=== PATIENT | female | born 1985 | race Caucasian/White ===

== ENCOUNTER 2017-12-23 15:41 | Emergency (ER) | payer BC ==
[2017-12-23] MEDS ORDERED: oxyCOD/ACETAMIN 5 MG/325 MG TABLET PO STA (16:42)
--- NOTE | 2017-12-23 16:46 | ED Physician Documentation ---
History of Present Illness - Stated complaint Stated Complaint: NAUSEA/PX ALL OVER - Chief complaint Chief Complaint: General - History obtained from History obtained from: Patient, Family - History of Present Illness Timing: Today Pain level max: 10 Pain level now: 10 Improved by: nothing, oxycodone normally helps Worsened by: movement - Additonal information Additional information: Patient is a 32-year-old female who presents to the emergency department with diffuse body pain. This been ongoing for the past day or so. Recently diagnosed with fibromyalgia. She states that she had been on oxycodone but has run out. She is awaiting an appointment with pain management. Has not had any fevers but has had coughing and body aches. Concerned that she may have the flu as well. Has had nausea. Also had mild diarrhea. Review of Systems Ten Systems: 10 systems reviewed and negative Constitutional: denies: Fever, Chills Ears: denies: Ear pain : denies: Now EGA Skin: denies: Rash Musculoskeletal: denies: Neck pain, Back pain Neurologic: denies: Generalized weakness, Focal weakness, Numbness PD PAST MEDICAL HISTORY - Past Medical History Past Medical History: Yes Musculoskeletal: Fibromyalgia - Past Surgical History Past Surgical History: Yes General: Cholecystectomy Ortho: Carpal Tunnel surgery - Present Medications Home Medications: Ambulatory Orders Medication Instructions Recorded Confirmed Oxycodone HCl/Acetaminophen 1 - 2 each PO Q6H PRN #12 tablet 12/23/17 [Percocet 5-325 mg Tablet] Trazodone HCl 150 12/23/17 Venlafaxine HCl [Effexor Xr] 225 12/23/17 - Allergies Allergies/Adverse Reactions: Allergies Allergy/AdvReac Type Severity Reaction Status Date / Time bupropion [From Wellbutrin] Allergy Unknown Verified 12/23/17 15:47 hyoscyamine Allergy Unknown Verified 12/23/17 15:47 - Social History Does the pt smoke?: No Smoking Status: Never smoker Substance Use and Type: Marijuana - Immunizations Immunizations are current?: Yes PD ED PE NORMAL - Vitals Vital signs reviewed: Yes - General General: Alert and oriented X 3, Other (appears uncomfortable) - HEENT HEENT: PERRL, Ears normal, Moist mucous membranes - Neck Neck: Supple, no meningeal sign - Cardiac Cardiac: RRR, Strong equal pulses - Respiratory Respiratory: No respiratory distress, Clear bilaterally - Abdomen Abdomen: Soft, Non tender, Non distended - Back Back: No CVA TTP, No spinal TTP - Derm Derm: Warm and dry, No rash - Extremities Extremities: No edema - Neuro Neuro: Alert and oriented X 3 Results - Vitals Vitals: Vital Signs - 24 hr 12/23/17 12/23/17 15:44 18:02 Temperature 36.8 C 37.0 C Heart Rate 92 77 Respiratory 18 16 Rate Blood Pressure 132/96 H 119/85 H O2 Saturation 99 99 Oxygen O2 Source Room air - Labs Labs: Laboratory Tests 12/23/17 16:50 Influenza A (Rapid) Negative Influenza B (Rapid) Negative Influenza Types A,B Ag - PD MEDICAL DECISION MAKING - ED course Complexity details: reviewed results, re-evaluated patient, considered differential, d/w patient, d/w family ED course: Patient is a 32-year-old female with a history of fibromyalgia who presents to the emergency department with diffuse body pain. Given 2 oxycodone 5 mg pills and symptoms resolved. Feels much better. Reviewed her JEAN-PIERRE/WAPMP and appears that she has been getting oxycodone fairly regularly, approximately 30 per month. Possible that she ran out and was experiencing withdrawal? Will have her follow-up with her doctor on Monday for further care. Will prescribe a small amount of medication for home. Patient informed that she will need to obtain further medications from her doctor. Patient counseled regarding signs and symptoms for which I believe and urgent re-evaluation would be necessary. Patient with good understanding of and agreement to plan and is comfortable going home at this time This document was made in part using voice recognition software. While efforts are made to proofread this document, sound alike and grammatical errors may occur. Departure - Departure Disposition: Home, Self Care Clinical Impression: Fibromyalgia Condition: Good Instructions: Fibromyalgia Follow-Up: Hallie Horton MD [Primary Care Provider] - Within 3 Days Prescriptions: Oxycodone HCl/Acetaminophen [Percocet 5-325 mg Tablet] 1 - 2 each PO Q6H PRN # 12 tablet PRN Reason: pain Comments: Use the percocet as needed for pain. All future pain medications will need to come from your doctor. Do not drink alcohol or drive while on narcotic pain medicine. Note that many narcotic pain relievers also contain tylenol/acetaminophen. Please ensure that your total dose of acetaminophen from all sources does not exceed 3 grams (3000mg) per day. You may constipated on this medication, take a stool softener such as "Colace" twice a day while you are on it. Also recommend a [id number] laxative such as senna or MiraLAX any day that you do not have a bowel movement. If you received narcotic pain medication in the emergency department, do not drive or operate machinery for the next 24 hours. Discharge Date/Time: 12/23/17 18:02
[2017-12-23 18:04] VITALS: BP 119/85
== END 2017-12-23 18:02 | disposition home or self-care (01) ==
LOC: ED 15:41
DX: M79.7 Fibromyalgia (principal)
CPT/HCPCS: 87275; 87276; 99283; A9270

== ENCOUNTER 2017-12-26 10:12 | Outpatient (CLI) | payer BC ==
[2017-12-26 10:47] LABS: BASOPHILS % (AUTO) 0.5 %; EOSINOPHILS # (AUTO) 0.1 10^3/uL (0.0-0.7); EOSINOPHILS % (AUTO) 0.8 %; HGB - HEMOGLOBIN 14.4 g/dL (12.0-16.0); LYMPHOCYTES % (AUTO) 14.9 %; MEAN CORPUSCULAR HEMOGLOBIN 29.5 pg (27.0-31.0); MEAN CORPUSCULAR HGB CONC 34.3 g/dL (32.0-36.0); MEAN CORPUSCULAR VOLUME 86.2 fL (81.0-99.0); MEAN PLATELET VOLUME 7.1 fL (7.9-10.8); MONOCYTES # (AUTO) 0.4 10^3/uL (0.0-1.0); MONOCYTES % (AUTO) 5.8 %; NEUTROPHILS # (AUTO) 5.1 10^3/uL (1.5-6.6); PLT - PLATELET COUNT 288 10^3/uL (130-450); RED BLOOD COUNT 4.86 10^6/uL (4.20-5.40); RED CELL DISTRIBUTION WIDTH 12.3 % (12.0-15.0); WHITE BLOOD COUNT 6.6 x10^3/uL (4.8-10.8)
[2017-12-26 11:07] LABS: CK- CREATINE KINASE 60 IU/L (22-269)
[2017-12-26 11:08] LABS: CRP - C-REACTIVE PROTEIN < 1.0 mg/dL (0-1.0)
[2017-12-26 11:28] LABS: BILIRUBIN,URINE NEGATIVE (NEGATIVE); GLUCOSE, URINE (UA) NEGATIVE (NEGATIVE); KETONES,URINE (UA) 15 mg/dL (NEGATIVE); LEUKOCYTE ESTERASE, URINE NEGATIVE (NEGATIVE); NITRITE,URINE NEGATIVE (NEGATIVE); OCCULT BLOOD,URINE NEGATIVE (NEGATIVE); PH,URINE 6.5 PH (5.0-7.5); PROTEIN,URINE NEGATIVE (NEGATIVE); UROBILINOGEN,URINE 0.2 (NORMAL) E.U./dL (NORMAL)
[2017-12-26 11:36] LABS: CLARITY,URINE CLEAR (CLEAR)
--- NOTE | 2017-12-26 16:44 | XRAY Report ---
TWO VIEW CHEST: 12/26/2017 CLINICAL INDICATION: Cough. COMPARISON: None. FINDINGS: Frontal and lateral views of the chest demonstrate a normal cardiac silhouette. The lungs are clear. No effusion or pneumothorax is present. IMPRESSION: NORMAL CHEST. TD: 12/26/2017 16:44
== END 2017-12-26 10:13 | disposition home or self-care (01) ==
LOC: LAB 10:12
PROVIDERS: ATTEND Internal Medicine
DX: R50.9 Fever, unspecified (principal); M79.1 Myalgia; R53.83 Other fatigue; R05 Cough
CPT/HCPCS: 36415; 71046; 81001; 81003; 82550; 84443; 85025; 85651; 86140; 86308; 87040; 87086

== ENCOUNTER 2017-12-26 11:08 | Emergency (ER) | payer BC ==
--- NOTE | 2017-12-26 12:26 | ED Physician Documentation ---
PD HPI URI - Stated complaint Stated Complaint: WEAKNESS/PX - Chief complaint Chief Complaint: General - History obtained from History obtained from: Patient - History of Present Illness Timing - onset: How many weeks ago (has had ongoing muscle pains with Dx ? fibromyalgia, and has had flu like symptoms with nausea, chills, worse aches the past week.) Timing details: Gradual onset, Still present, Waxing and waning Associated symptoms: Chills, Dry cough. No: Fever, Nasal congestion, Sore throat, Swollen nodes Contributing factors: No: Sick contact, Travel Similar symptoms before: Diagnosis (fibromyalgia) Recently seen: Emergency Dept (several days ago, with neg flu test and presumed some viral illness. Seen by new PCP today and got outpt labs and CXR which are resulting. She came to ED again for symptoms after getting chest xray. Feeling still marked myalgias, weakness, nausea.) Review of Systems Constitutional: reports: Chills, Myalgias, Fatigue Nose: reports: Congestion. denies: Rhinorrhea / runny nose Throat: denies: Sore throat Cardiac: denies: Chest pain / pressure, Palpitations Respiratory: reports: Cough GI: denies: Abdominal Pain, Nausea, Vomiting, Diarrhea Skin: denies: Rash, Lesions Neurologic: reports: Generalized weakness. denies: Focal weakness, Numbness, Near syncope PD PAST MEDICAL HISTORY - Past Medical History Past Medical History: Yes Cardiovascular: None Respiratory: None Neuro: None Psych: None Musculoskeletal: Fibromyalgia - Past Surgical History Past Surgical History: Yes General: Cholecystectomy Ortho: Carpal Tunnel surgery - Present Medications Home Medications: Ambulatory Orders Medication Instructions Recorded Confirmed Trazodone HCl 150 12/23/17 Venlafaxine HCl [Effexor Xr] 225 12/23/17 Amitriptyline [Elavil] 25 mg PO HS #30 tablet 12/26/17 Dexamethasone [Decadron] 4 mg PO DAILY #5 tablet 12/26/17 Naproxen 375 mg PO BID #20 tablet 12/26/17 Oxycodone HCl/Acetaminophen 1 each PO Q6H PRN #20 tablet 12/26/17 [Percocet 5-325 mg Tablet] Promethazine [Phenergan] 25 mg PO Q6H PRN #30 tab 12/26/17 - Allergies Allergies/Adverse Reactions: Allergies Allergy/AdvReac Type Severity Reaction Status Date / Time bupropion [From Wellbutrin] Allergy Unknown Verified 12/26/17 11:21 hyoscyamine Allergy Unknown Verified 12/26/17 11:21 - Social History Does the pt smoke?: No Smoking Status: Never smoker Does the pt drink ETOH?: No Does the pt have substance abuse?: Yes Substance Use and Type: Marijuana - Immunizations Immunizations are current?: Yes PD ED PE NORMAL - Vitals Vital signs reviewed: Yes - General General: Alert and oriented X 3, No acute distress, Well developed/nourished - HEENT HEENT: Moist mucous membranes, Pharynx benign - Neck Neck: Supple, no meningeal sign, No adenopathy - Cardiac Cardiac: RRR, No murmur - Respiratory Respiratory: Clear bilaterally - Abdomen Abdomen: Soft, Non tender - Back Back: No CVA TTP - Derm Derm: Normal color, Warm and dry - Extremities Extremities: Other (tender in muscles diffusely. No rash nor sores. No joint pains per se. ) - Neuro Neuro: Alert and oriented X 3, No motor deficit, No sensory deficit, Normal speech Results - Vitals Vitals: Oxygen O2 Source Room air PD MEDICAL DECISION MAKING - ED course Complexity details: reviewed old records, reviewed results (outpt tests done today by PMD include CBC, chemistry, CK, ESR. ), considered differential, d/w patient Departure - Departure Disposition: 01 Home, Self Care Clinical Impression: Myalgia, Fibromyalgia, Nausea Condition: Stable Record reviewed to determine appropriate education?: Yes Instructions: ED Muscle Aching Follow-Up: Hallie Horton MD [Primary Care Provider] - Prescriptions: Amitriptyline [Elavil] 25 mg PO HS #30 tablet Dexamethasone [Decadron] 4 mg PO DAILY #5 tablet Naproxen 375 mg PO BID #20 tablet Oxycodone HCl/Acetaminophen [Percocet 5-325 mg Tablet] 1 each PO Q6H PRN #20 tablet PRN Reason: Pain Promethazine [Phenergan] 25 mg PO Q6H PRN #30 tab PRN Reason: Nausea / Vomiting Comments: The tests by Dr. Horton seen appropriate. There is no signs of muscle breakdown. Screening test does not suggest autoimmune such as rheumatoid or lupus. There could be some inflammation generally. You may have a flulike illness currently. Continue the Zofran if needed for nausea. If that is not adequate he can use promethazine instead. Will try some anti-inflammatories with naproxen and Decadron. Low-dose Elavil at night may help with ongoing pains and also help sleep as well. Add oxycodone if needed for pain. Uses only 3 times a day one tablet to lessen the pains. Follow-up with your primary care in the pain clinic when you are able to get into them. Further pain medication will need to be through them. Discharge Date/Time: 12/26/17 13:17
[2017-12-26] MEDS ORDERED: DEXAMETHASONE 10 MG/ML VIAL PO STA (12:43)
[2017-12-26] MEDS ORDERED: oxyCODONE 5 MG TABLET PO STA (12:43)
[2017-12-26] MEDS ORDERED: NAPROXEN 250 MG TABLET PO STA (12:44)
[2017-12-26 13:19] VITALS: BP 116/72
== END 2017-12-26 13:17 | disposition home or self-care (01) ==
LOC: ED 11:08
DX: M79.7 Fibromyalgia (principal); R50.9 Fever, unspecified; R53.83 Other fatigue; R05 Cough
CPT/HCPCS: 36415; 71046; 81003; 82550; 84443; 85025; 85651; 86140; 86308; 87040; 99283; A9270; 81001; 87086

== ENCOUNTER 2018-04-17 09:23 | Outpatient (CLI) | payer SELFPAY | END 2018-04-17 09:24 | disposition home or self-care (01) | LOC: LAB 09:23 | DX: Z01.89 Encounter for other specified special examinations (principal) | CPT/HCPCS: 36415 ==

== ENCOUNTER 2018-04-17 10:20 | Emergency (ER) | payer BC ==
[2018-04-17 10:26] VITALS: BP 129/95
[2018-04-17 10:40] LABS: BILIRUBIN,URINE NEGATIVE (NEGATIVE); GLUCOSE, URINE (UA) NEGATIVE (NEGATIVE); KETONES,URINE (UA) NEGATIVE (NEGATIVE); LEUKOCYTE ESTERASE, URINE SMALL (NEGATIVE); NITRITE,URINE NEGATIVE (NEGATIVE); OCCULT BLOOD,URINE NEGATIVE (NEGATIVE); PH,URINE 6.5 PH (5.0-7.5); PROTEIN,URINE NEGATIVE (NEGATIVE); UROBILINOGEN,URINE 0.2 (NORMAL) E.U./dL (NORMAL)
[2018-04-17 10:43] LABS: CLARITY,URINE CLEAR (CLEAR)
[2018-04-17 10:44] LABS: HCG UR QUAL NEGATIVE
[2018-04-17 10:48] LABS: BACTERIA,URINE Rare /HPF (None Seen); RBC,URINE 0-5 /HPF (0-5); SQUAMOUS EPITHELIAL CELL,UR FEW Squamous (<= Few)
--- NOTE | 2018-04-17 12:12 | ED Physician Documentation ---
PD HPI FEMALE - Stated complaint Stated Complaint: FEMALE - Chief complaint Chief Complaint: UTI - History obtained from History obtained from: Patient - History of Present Illness Timing - onset: How many days ago (few) Timing - duration: Days (few) Timing - details: Gradual onset, Still present Associated symptoms: Vaginal discharge (mild), Dysuria, Urinary frequency. No: Fever, Genital sore/lesion Contributing factors: No: Exposed to STD Similar symptoms before: Diagnosis (uti) Review of Systems Constitutional: denies: Fever, Chills, Myalgias GI: denies: Abdominal Pain, Nausea, Vomiting, Diarrhea Skin: denies: Rash Musculoskeletal: reports: Back pain PD PAST MEDICAL HISTORY - Past Medical History Past Medical History: No Cardiovascular: None Respiratory: None Psych: None Musculoskeletal: Fibromyalgia - Past Surgical History Past Surgical History: Yes General: Cholecystectomy Ortho: Carpal Tunnel surgery - Present Medications Home Medications: Ambulatory Orders Medication Instructions Recorded Confirmed Trazodone HCl 150 12/23/17 Venlafaxine HCl [Effexor Xr] 225 12/23/17 Amitriptyline [Elavil] 25 mg PO HS #30 tablet 12/26/17 Dexamethasone [Decadron] 4 mg PO DAILY #5 tablet 12/26/17 Naproxen 375 mg PO BID #20 tablet 12/26/17 Oxycodone HCl/Acetaminophen 1 each PO Q6H PRN #20 tablet 12/26/17 [Percocet 5-325 mg Tablet] Promethazine [Phenergan] 25 mg PO Q6H PRN #30 tab 12/26/17 HYDROcod/ACETAM 5/325 [Bard 5/325] 1 tab PO Q6H PRN #15 tablet 04/17/18 Metronidazole [Flagyl] 500 mg PO BID #14 tablet 04/17/18 Naproxen 375 mg PO BID #20 tablet 04/17/18 Phenazopyridine [Pyridium] 200 mg PO TID PRN #30 tablet 04/17/18 - Allergies Allergies/Adverse Reactions: Allergies Allergy/AdvReac Type Severity Reaction Status Date / Time bupropion [From Wellbutrin] Allergy Unknown Verified 04/17/18 10:26 hyoscyamine Allergy Unknown Verified 04/17/18 10:26 - Social History Does the pt smoke?: No Smoking Status: Never smoker Does the pt drink ETOH?: No Does the pt have substance abuse?: Yes - Immunizations Immunizations are current?: Yes - POLST Patient has POLST: No PD ED PE NORMAL - Vitals Vital signs reviewed: Yes - General General: Alert and oriented X 3, No acute distress, Well developed/nourished - HEENT HEENT: Pharynx benign - Cardiac Cardiac: RRR, No murmur - Respiratory Respiratory: Clear bilaterally - Abdomen Abdomen: Soft, Non tender - Female Female : Bias Binding Folder present, Other (outer genitalia normal. vault with clear to milky white thin discharge, without odor. Suggestive of BV. ) - Rectal Rectal: Deferred - Back Back: No CVA TTP Results - Vitals Vitals: Vital Signs - 24 hr 04/17/18 10:23 Temperature 36.2 C L Heart Rate 79 Respiratory 18 Rate Blood Pressure 129/95 H O2 Saturation 100 Oxygen O2 Source Room air - Labs Labs: Microbiology 04/17/18 10:27 Urine Culture - Preliminary Urine,Clean Catch Escherichia Coli 04/17/18 13:00 Wet Prep - Final Genital - Cervix Laboratory Tests 04/17/18 04/17/18 10:27 10:27 Urine Color STRAW Urine Clarity CLEAR Urine pH 6.5 Ur Specific [place] <=1.005 <1.0058 Urine Protein NEGATIVE Urine Glucose (UA) NEGATIVE Urine Ketones NEGATIVE Urine Occult Blood NEGATIVE Urine Nitrite NEGATIVE Urine Bilirubin NEGATIVE Urine Urobilinogen 0.2 (NORMAL) Ur Leukocyte Esterase SMALL H Urine RBC 0-5 Urine WBC 0-3 Ur Squamous Epith Cells FEW Squamous Urine Bacteria Rare Ur Microscopic Review INDICATED Urine Culture Comments INDICATED Urine HCG, Qual NEGATIVE PD MEDICAL DECISION MAKING - ED course Complexity details: considered differential (UA is not convincing for UTI. Did pelvic and noted milky white vaginal discharge without odor. Consider BV more likely than UTI, but cultures will be useful. ), d/w patient Departure - Departure Disposition: 01 Home, Self Care Clinical Impression: Dysuria, Pelvic pain, Bacterial vaginitis Condition: Stable Record reviewed to determine appropriate education?: Yes Instructions: ED Dysuria Uncertain Cause, ED Vaginosis Bacterial Follow-Up: Bull Kumar DO [Primary Care Provider] - Prescriptions: HYDROcod/ACETAM 5/325 [Bard 5/325] 1 tab PO Q6H PRN #15 tablet PRN Reason: Pain Metronidazole [Flagyl] 500 mg PO BID #14 tablet Naproxen 375 mg PO BID #20 tablet Phenazopyridine [Pyridium] 200 mg PO TID PRN #30 tablet PRN Reason: Pain Comments: Your urine test has some white cells but not obviously showing bladder infection. There is clinically what appears of bacterial vaginitis and these can give the same pelvic pain and hurting with urination. We will treated focused as a bacterial vaginitis initially and this should cover for most bladder infections 2. Treat the symptoms with naproxen twice daily for the next 7-10 days and this will help with inflammation as well. Add phenazopyridine to decrease the discomfort with urination. This will turn her urine a little orange colored so not to worry. Add Tylenol or hydrocodone if needed for pains. Metronidazole antibiotic twice daily for a week. We will get cultures of urine and vaginal exam back in a couple of days and see if we need to amend the treatment. Discharge Date/Time: 04/17/18 13:28
[2018-04-17] MEDS ORDERED: IBUPROFEN 600 MG TABLET PO STA (12:24)
[2018-04-17] MEDS ORDERED: PHENAZOPYRIDINE 100 MG TABLET PO STA (12:24)
[2018-04-17] MEDS ORDERED: HYDROcod/ACETAM 5/325 MG TABLET PO STA (12:24)
[2018-04-17] MEDS ORDERED: metroNIDAZOLE 250 MG TABLET PO STA (13:07)
== END 2018-04-17 13:28 | disposition home or self-care (01) ==
LOC: ED 10:20
DX: N76.0 Acute vaginitis (principal)
CPT/HCPCS: 81001; 81025; 87086; 87181; 87210; 87491; 87591; 99283; A9270; 81003

== ENCOUNTER 2018-04-18 10:06 | Emergency (ER) | payer BC ==
[2018-04-18] MEDS ORDERED: fentaNYL 100 MCG/2 ML VIAL IM STA (11:30)
[2018-04-18] MEDS ORDERED: LORazepam 2 MG/ML VIAL IM STA (11:30)
[2018-04-18] MEDS ORDERED: ONDANSETRON ODT 4 MG TABLET TL STA (11:32)
[2018-04-18 11:43] LABS: BASOPHILS % (AUTO) 0.5 %; EOSINOPHILS # (AUTO) 0.2 10^3/uL (0.0-0.7); EOSINOPHILS % (AUTO) 2.4 %; HGB - HEMOGLOBIN 14.3 g/dL (12.0-16.0); LYMPHOCYTES # (AUTO) 1.4 10^3/uL (1.5-3.5); LYMPHOCYTES % (AUTO) 15.7 %; MEAN CORPUSCULAR HEMOGLOBIN 28.9 pg (27.0-31.0); MEAN CORPUSCULAR HGB CONC 33.5 g/dL (32.0-36.0); MEAN CORPUSCULAR VOLUME 86.3 fL (81.0-99.0); MEAN PLATELET VOLUME 7.6 fL (7.9-10.8); MONOCYTES # (AUTO) 0.7 10^3/uL (0.0-1.0); MONOCYTES % (AUTO) 7.5 %; NEUTROPHILS # (AUTO) 6.5 10^3/uL (1.5-6.6); NEUTROPHILS % (AUTO) 73.9 %; PLT - PLATELET COUNT 300 10^3/uL (130-450); RED BLOOD COUNT 4.93 10^6/uL (4.20-5.40); RED CELL DISTRIBUTION WIDTH 12.6 % (12.0-15.0); WHITE BLOOD COUNT 8.7 x10^3/uL (4.8-10.8)
[2018-04-18] MEDS ORDERED: IOPAMIDOL-300 100 ML VIAL ONE ×2 (11:46→12:49)
[2018-04-18 11:56] LABS: ALBUMIN 4.3 g/dL (3.2-5.5); ALBUMIN/GLOBULIN RATIO 1.2 (1.0-2.2); BILIRUBIN,TOTAL 0.5 mg/dL (0.2-1.0); CALCIUM 9.1 mg/dL (8.5-10.3); CREATININE 0.7 mg/dL (0.4-1.0); TOTAL PROTEIN 7.8 g/dL (6.7-8.2)
--- NOTE | 2018-04-18 12:48 | ED Physician Documentation ---
PD HPI ABD PAIN - Stated complaint Stated Complaint: ABD PX - Chief complaint Chief Complaint: Abd Pain - History obtained from History obtained from: Patient, Family - History of Present Illness Timing - onset: Enter time (0200), Last night Timing - duration: Hours Timing - details: Gradual onset, Still present Quality: Cramping, Sharp, Pain Location: Suprapubic Radiation: Right flank Improved by: Other (nothing) Worsened by: Moving, Breathing, Position Associated symptoms: Nausea Similar symptoms before: Has not had sx before Recently seen: Emergency Dept - Additional information Additional information: 40-year-old female was seen in the emergency department yesterday with a chief complaint of urinary frequency and dysuria. She was diagnosed with bacterial vaginosis and was started on Flagyl. She took 2 doses of metronidazole and early this morning she began to have severe lower abdominal cramping pain. The pain was severe enough that she has nearly passed out coming into the emergency department. Review of Systems Constitutional: reports: Fatigue, Sweats. denies: Fever Eyes: denies: Decreased vision Ears: denies: Ear pain Nose: denies: Congestion Throat: denies: Sore throat Cardiac: denies: Chest pain / pressure, Palpitations Respiratory: denies: Dyspnea, Cough GI: reports: Abdominal Pain, Nausea, Vomiting : reports: Dysuria, Frequency Skin: denies: Rash Musculoskeletal: denies: Neck pain, Back pain, Extremity pain Neurologic: denies: Generalized weakness, Focal weakness, Numbness PD PAST MEDICAL HISTORY - Past Medical History Cardiovascular: None Respiratory: None Psych: None Musculoskeletal: Fibromyalgia - Past Surgical History Past Surgical History: Yes General: Cholecystectomy Ortho: Carpal Tunnel surgery - Present Medications Home Medications: Ambulatory Orders Medication Instructions Recorded Confirmed Trazodone HCl 150 12/23/17 Venlafaxine HCl [Effexor Xr] 225 12/23/17 Amitriptyline [Elavil] 25 mg PO HS #30 tablet 12/26/17 Dexamethasone [Decadron] 4 mg PO DAILY #5 tablet 12/26/17 Naproxen 375 mg PO BID #20 tablet 12/26/17 Oxycodone HCl/Acetaminophen 1 each PO Q6H PRN #20 tablet 12/26/17 [Percocet 5-325 mg Tablet] Promethazine [Phenergan] 25 mg PO Q6H PRN #30 tab 12/26/17 HYDROcod/ACETAM 5/325 [[place] 5/325] 1 tab PO Q6H PRN #15 tablet 04/17/18 Metronidazole [Flagyl] 500 mg PO BID #14 tablet 04/17/18 Naproxen 375 mg PO BID #20 tablet 04/17/18 Phenazopyridine [Pyridium] 200 mg PO TID PRN #30 tablet 04/17/18 Sulfamethoxazole/Trimethoprim 1 each PO BID #10 tablet 04/18/18 [Sulfamethoxazole-Tmp Ds Tablet] - Allergies Allergies/Adverse Reactions: Allergies Allergy/AdvReac Type Severity Reaction Status Date / Time bupropion [From Wellbutrin] Allergy Unknown Verified 04/17/18 10:26 hyoscyamine Allergy Unknown Verified 04/17/18 10:26 - Social History Does the pt smoke?: No Smoking Status: Never smoker Does the pt drink ETOH?: No Does the pt have substance abuse?: Yes - Immunizations Immunizations are current?: Yes - POLST Patient has POLST: No PD ED PE NORMAL - Vitals Vital signs reviewed: Yes (normal ) - General General: Alert and oriented X 3, Well developed/nourished, Other (The patient is dramatically crying and moving around and appears to be in pain ) - HEENT HEENT: Atraumatic, PERRL - Neck Neck: Supple, no meningeal sign - Cardiac Cardiac: RRR, No murmur - Respiratory Respiratory: No respiratory distress, Clear bilaterally - Abdomen Abdomen: Soft, Other (General tenderness and suprapubic tenderness without gaurding .) - Back Back: No CVA TTP, No spinal TTP - Derm Derm: Normal color, Warm and dry, No rash - Extremities Extremities: No deformity, No edema - Neuro Neuro: Alert and oriented X 3, No motor deficit, No sensory deficit Eye Opening: Spontaneous Motor: Obeys Commands Verbal: Oriented GCS Score: 15 - Psych Psych: Other (mood is dramatic in pain and the affect is flat. ) Results - Vitals Vitals: Vital Signs - 24 hr 04/18/18 04/18/18 04/18/18 10:17 12:15 14:08 Temperature 37.2 C 37.1 C Heart Rate 98 79 88 Respiratory 16 18 18 Rate Blood Pressure 136/70 H 108/65 107/68 O2 Saturation 100 98 97 04/18/18 14:50 Temperature 36.9 C Heart Rate 73 Respiratory 16 Rate Blood Pressure 106/62 O2 Saturation 96 Oxygen O2 Source Room air - Labs Labs: Laboratory Tests 04/18/18 04/18/18 04/18/18 11:39 11:39 13:00 WBC 8.7 RBC 4.93 Hgb 14.3 Hct 42.5 MCV 86.3 MCH 28.9 MCHC 33.5 RDW 12.6 Plt Count 300 MPV 7.6 L Neut # (Auto) 6.5 Lymph # (Auto) 1.4 L Becker # (Auto) 0.7 Eos # (Auto) 0.2 Baso # (Auto) 0.0 Absolute Nucleated RBC 0.00 Nucleated RBC % 0.0 Sodium 134 L Potassium 3.7 Chloride 103 Carbon Dioxide 23 Anion Gap 8.0 BUN 7 Creatinine 0.7 Estimated GFR (MDRD) 98 Glucose 87 Calcium 9.1 Total Bilirubin 0.5 AST 27 ALT 26 Alkaline Phosphatase 68 Total Protein 7.8 Albumin 4.3 Globulin 3.5 Albumin/Globulin Ratio 1.2 Lipase 33 Urine Color DK. ORANGE Urine Clarity CLOUDY Urine pH 8.0 H Ur Specific [place] 1.015 Urine Protein Urine Glucose (UA) TNP Urine Ketones TNP Urine Occult Blood Urine Nitrite Urine Bilirubin NEGATIVE Urine Urobilinogen Ur Leukocyte Esterase Urine RBC TNTC H Urine WBC >25 H Ur Squamous Epith Cells MANY Squamous H Urine Bacteria None Seen Ur Microscopic Review INDICATED Urine Culture Comments NOT INDICATED Urine HCG, Qual NEGATIVE - Rads (name of study) CT abdomen/pelvis Radiology: Prelim report reviewed (Impression: 1. No urolithiasis or hydronephrosis. 2 Normal appendix. 3 Subcutaneous gas in the left buttock, question secondary to injection.), EMP read indepedently, See rad report PD MEDICAL DECISION MAKING - ED course Complexity details: reviewed results, re-evaluated patient, considered differential, d/w patient, d/w family ED course: 32-year-old female who was seen in the emergency department yesterday for symptoms of urinary tract infection had a negative urinalysis yesterday and a pelvic exam revealed what appeared to be bacterial vaginosis. She was treated for this with metronidazole and it appears she may have had a reaction to the metronidazole in the form of severe lower abdominal cramping. This was quite dramatic the patient was in a lot of pain she required some intravenous fentanyl for pain relief. She also received required some Ativan she was quite anxious. At the conclusion of the visit it appears that the urine is infected today with a greater than 25 white blood cells per high-powered field. She is given an injection of Rocephin and we will place her on some Septra. We will discontinue the metronidazole. The patient denies any use of alcohol but does seem to have had a significant reaction to this medicine. I did discuss with the patient treatment of bacterial vaginosis with topical preparations and the natural history of bacterial vaginosis, that of sometimes there is a paucity of symptoms and self resolution and with shared decision making we have foregone treatment of the bacterial vaginosis today. She will follow-up with her primary. Departure - Departure Disposition: 01 Home, Self Care Clinical Impression: Urinary tract infection Qualifiers: Urinary tract infection type: acute cystitis Hematuria presence: without hematuria Qualified Code(s): N30.00 - Acute cystitis without hematuria Medication reaction Qualifiers: Encounter type: initial encounter Qualified Code(s): T88.7XXA - Unspecified adverse effect of drug or medicament, initial encounter Condition: Stable Instructions: ED UTI Cystitis Female Follow-Up: Bull Kumar DO [Primary Care Provider] - Prescriptions: Sulfamethoxazole/Trimethoprim [Sulfamethoxazole-Tmp Ds Tablet] 1 each PO BID # 10 tablet Discharge Date/Time: 04/18/18 14:54
--- NOTE | 2018-04-18 13:18 | CT Report ---
EXAM: CT ABDOMEN AND PELVIS EXAM DATE: 04/18/2018 01:04 PM. CLINICAL HISTORY: R sided pain. COMPARISONS: None. TECHNIQUE: Routine helical CT imaging was performed through the abdomen and pelvis. IV contrast: No. Enteric contrast: No. Reconstructions: Coronal and sagittal. In accordance with CT protocol optimization, one or more of the following dose reduction techniques w ere utilized for this exam: automated exposure control, adjustment of mA and/or KV based on patient s ize, or use of iterative reconstructive technique. FINDINGS: Lung Bases: Unremarkable. Liver: Normal. No masses. Gallbladder/Bile Ducts: The gallbladder is surgically absent. Spleen: Normal. Pancreas: Normal. Adrenal Glands: Normal. Kidneys: The kidneys are normal in size and position. No urolithiasis or hydronephrosis. Peritoneal Cavity/Bowel: Normal. No free fluid, free air or adenopathy. No masses or acute inflammato ry process. The appendix is well visualized and normal. Pelvic Organs: Urinary bladder appears unremarkable. Uterus is anteverted. Ovaries normal in size for age. Vasculature: No aneurysms or other significant abnormality. Bones: No significant abnormality. Other: There is subcutaneous tissue gas in the left buttock. IMPRESSION: 1. No urolithiasis or hydronephrosis. 2. Normal appendix. 3. Subcutaneous gas in the left buttock, question secondary to injection. [facility] Referring Provider Line: [phone] SITE ID: [id number]
--- NOTE | 2018-04-18 13:18 | CT Preliminary Report ---
Exam: CT ABDOMEN/PELVIS W/O IMPRESSION: 1. No urolithiasis or hydronephrosis. 2. Normal appendix. 3. Subcutaneous gas in the left buttock, question secondary to injection. [facility] SITE ID: [id number]
[2018-04-18 13:38] LABS: CLARITY,URINE CLOUDY (CLEAR)
[2018-04-18 13:40] LABS: BILIRUBIN,URINE NEGATIVE (NEGATIVE); HCG UR QUAL NEGATIVE; ICTOTEST,URINE NEGATIVE
[2018-04-18 13:41] LABS: BACTERIA,URINE None Seen /HPF (None Seen); RBC,URINE TNTC /HPF (0-5); SQUAMOUS EPITHELIAL CELL,UR MANY Squamous (<= Few)
[2018-04-18] MEDS ORDERED: cefTRIAXone 1 GM VIAL IM STA (14:05)
[2018-04-18] MEDS ORDERED: LIDOCAINE 1% 2 ML VIAL SUBQ ONE (14:05)
[2018-04-18 14:50] VITALS: BP 106/62
== END 2018-04-18 14:54 | disposition home or self-care (01) ==
LOC: ED 10:06
DX: N30.00 Acute cystitis without hematuria (principal); T88.7XXA Unspecified adverse effect of drug or medicament, initial encounter
CPT/HCPCS: 36415; 74176; 80053; 81001; 81025; 83690; 85025; 96372; 99283; J2060; Q0162; 81003; 87086

== ENCOUNTER 2018-06-12 13:36 | Outpatient (CLI) | payer SELFPAY | END 2018-06-12 13:37 | disposition home or self-care (01) | LOC: LAB 13:36 | DX: Z01.89 Encounter for other specified special examinations (principal) | CPT/HCPCS: 36415 ==

== ENCOUNTER 2018-08-07 10:46 | Outpatient (CLI) | payer BC ==
[2018-08-07 12:37] LABS: ALBUMIN 4.5 g/dL (3.2-5.5); BILIRUBIN,DIRECT 0.1 mg/dL (0.1-0.5); BILIRUBIN,TOTAL 0.5 mg/dL (0.2-1.0); TOTAL PROTEIN 8.3 g/dL (6.7-8.2)
== END 2018-08-07 10:47 | disposition home or self-care (01) ==
LOC: LAB 10:46
PROVIDERS: ATTEND Pain Medicine Pain Medicine
DX: Z79.899 Other long term (current) drug therapy (principal)
CPT/HCPCS: 36415; 80076

== ENCOUNTER 2018-09-06 09:03 | Outpatient (CLI) | payer BC ==
[2018-09-06 11:21] LABS: THYROID STIMULATING HORMONE 1.83 uIU/mL (0.34-5.60)
[2018-09-06 11:23] LABS: FREE T4 (FREE THYROXINE) 0.83 ng/dL (0.58-1.64)
[2018-09-07 07:12] LABS: ESTRADIOL 92 pg/mL
[2018-09-10 13:41] LABS: THYROID PEROXIDASE ANTIBODIES 30 IU/mL (<9)
== END 2018-09-06 09:04 | disposition home or self-care (01) ==
LOC: LAB 09:03
PROVIDERS: ATTEND Naturopath
DX: R53.83 Other fatigue (principal); E03.9 Hypothyroidism, unspecified
CPT/HCPCS: 36415; 82626; 82670; 84144; 84439; 84443; 84481; 84482; 86141; 86376; 86800

== ENCOUNTER 2019-07-17 16:49 | Emergency (ER) | payer OTHER ==
[2019-07-17 17:37] LABS: BASOPHILS # (AUTO) 0.1 10^3/uL (0.0-0.1); EOSINOPHILS # (AUTO) 0.9 10^3/uL (0.0-0.7); EOSINOPHILS % (AUTO) 12.8 %; HGB - HEMOGLOBIN 14.5 g/dL (12.0-16.0); LYMPHOCYTES # (AUTO) 2.1 10^3/uL (1.5-3.5); LYMPHOCYTES % (AUTO) 28.7 %; MEAN CORPUSCULAR HEMOGLOBIN 29.4 pg (27.0-31.0); MEAN CORPUSCULAR HGB CONC 33.8 g/dL (32.0-36.0); MEAN CORPUSCULAR VOLUME 86.8 fL (81.0-99.0); MONOCYTES # (AUTO) 0.5 10^3/uL (0.0-1.0); MONOCYTES % (AUTO) 7.4 %; NEUTROPHILS # (AUTO) 3.6 10^3/uL (1.5-6.6); PLT - PLATELET COUNT 321 10^3/uL (130-450); RED BLOOD COUNT 4.94 10^6/uL (4.20-5.40); WHITE BLOOD COUNT 7.3 x10^3/uL (4.8-10.8)
[2019-07-17 17:42] LABS: BILIRUBIN,URINE NEGATIVE (NEGATIVE); GLUCOSE, URINE (UA) NEGATIVE (NEGATIVE); KETONES,URINE (UA) 15 mg/dL (NEGATIVE); LEUKOCYTE ESTERASE, URINE SMALL (NEGATIVE); NITRITE,URINE NEGATIVE (NEGATIVE); OCCULT BLOOD,URINE NEGATIVE (NEGATIVE); PH,URINE 8.5 PH (5.0-7.5); PROTEIN,URINE NEGATIVE (NEGATIVE); UROBILINOGEN,URINE 0.2 (NORMAL) E.U./dL (NORMAL)
[2019-07-17 17:45] LABS: CLARITY,URINE CLEAR (CLEAR)
[2019-07-17 17:46] LABS: HCG UR QUAL NEGATIVE
[2019-07-17 17:48] LABS: ALBUMIN 4.4 g/dL (3.2-5.5); ALBUMIN/GLOBULIN RATIO 1.2 (1.0-2.2); BILIRUBIN,TOTAL 0.4 mg/dL (0.2-1.0); CALCIUM 9.8 mg/dL (8.5-10.3); CREATININE 0.8 mg/dL (0.4-1.0); TOTAL PROTEIN 8.1 g/dL (6.7-8.2)
[2019-07-17 17:53] LABS: BACTERIA,URINE Few /HPF (None Seen); RBC,URINE None Seen /HPF (0-5); SQUAMOUS EPITHELIAL CELL,UR MANY Squamous (<= Few)
[2019-07-17] MEDS ORDERED: SODIUM CHLORIDE 0.9% 1,000 ML IV ONE (20:28)
[2019-07-17] MEDS ORDERED: cefTRIAXone 1 GM in SODIUM CHLORIDE 0.9% MINIBAG 100 ML IV STA (20:28)
--- NOTE | 2019-07-17 20:32 | ED Physician Documentation ---
PD HPI ABD PAIN - Stated complaint Stated Complaint: AB PX - Chief complaint Chief Complaint: Abd Pain - History obtained from History obtained from: Patient, Family - History of Present Illness Timing - onset: How many weeks ago (1) Timing - duration: Weeks (1) Timing - details: Gradual onset, Still present, Waxing and waning Quality: Cramping, Pain Location: All over / everywhere Radiation: Left flank Improved by: Laying still Worsened by: Position, Palpation Associated symptoms: Nausea Similar symptoms before: Diagnosis (UTI and lyme disease) Recently seen: Not recently seen - Additional information Additional information: 32-year-old female male with a year long history of intermittent abdominal pain and urinary tract symptoms who suspect she has Lyme disease has spent a lot of time in bed this past year with abdominal pain and fatigue. She reports that over the past week she has had persistent abdominal pain cramping in nature and generalized without vomiting or diarrhea. She has been able to eat and over the past day she has decreased her level of activity she has sweats and she is not eating. She reports left flank pain. She reports that she has had urinary tract infection about once per month over the past year she has been treated with Septra and she is uncertain about results of any cultures that abdomen done of her urine. She has not been into see the urologist. She has had testing done for Lyme disease and has a mixed result..She feels that she gets a Jarex herkshimer reaction when she starts antibiotic. Review of Systems Constitutional: reports: Chills, Myalgias, Fatigue Eyes: denies: Decreased vision Ears: denies: Ear pain Nose: reports: Congestion. denies: Rhinorrhea / runny nose Throat: denies: Sore throat Cardiac: denies: Chest pain / pressure, Palpitations Respiratory: denies: Dyspnea, Cough GI: reports: Abdominal Pain, Nausea : reports: Frequency. denies: Dysuria Skin: denies: Rash Musculoskeletal: reports: Back pain. denies: Neck pain, Extremity pain Neurologic: reports: Generalized weakness. denies: Focal weakness, Numbness PD PAST MEDICAL HISTORY - Past Medical History Cardiovascular: None Respiratory: None Psych: None Musculoskeletal: Fibromyalgia - Past Surgical History Past Surgical History: Yes General: Cholecystectomy Ortho: Carpal Tunnel surgery - Present Medications Home Medications: Ambulatory Orders Medication Instructions Recorded Confirmed RX: Trazodone HCl 150 12/23/17 Venlafaxine HCl [Effexor Xr] 225 12/23/17 Amitriptyline [Elavil] 25 mg PO HS #30 tablet 12/26/17 Oxycodone HCl/Acetaminophen 1 each PO Q6H PRN #20 tablet 12/26/17 [Percocet 5-325 mg Tablet] Promethazine [Phenergan] 25 mg PO Q6H PRN #30 tab 12/26/17 RX: Naproxen 375 mg PO BID #20 tablet 12/26/17 dexAMETHasone [Decadron] 4 mg PO DAILY #5 tablet 12/26/17 HYDROcod/ACETAM 5/325 [[place] 5/325] 1 tab PO Q6H PRN #15 tablet 04/17/18 Metronidazole [Flagyl] 500 mg PO BID #14 tablet 04/17/18 Phenazopyridine [Pyridium] 200 mg PO TID PRN #30 tablet 04/17/18 RX: Naproxen 375 mg PO BID #20 tablet 04/17/18 Sulfamethoxazole/Trimethoprim 1 each PO BID #10 tablet 04/18/18 [Sulfamethoxazole-Tmp Ds Tablet] - Allergies Allergies/Adverse Reactions: Allergies Allergy/AdvReac Type Severity Reaction Status Date / Time bupropion [From Wellbutrin] Allergy Unknown Verified 04/17/18 10:26 hyoscyamine Allergy Unknown Verified 04/17/18 10:26 - Social History Does the pt smoke?: No Smoking Status: Never smoker Does the pt drink ETOH?: No Does the pt have substance abuse?: Yes - Immunizations Immunizations are current?: Yes - POLST Patient has POLST: No PD ED PE NORMAL - Vitals Vital signs reviewed: Yes (hypertensive ) - General General: Alert and oriented X 3, Well developed/nourished, Other (appears emotional and is in tears) - HEENT HEENT: Atraumatic, PERRL, EOMI, Other (dry mucous membranes ) - Neck Neck: Supple, no meningeal sign, No bony TTP - Cardiac Cardiac: RRR, No murmur - Respiratory Respiratory: No respiratory distress, Clear bilaterally - Abdomen Abdomen: Normal bowel sounds, Soft, Non tender, Non distended, No organomegaly - Back Back: No spinal TTP, Other (mild left flank tenderness) - Derm Derm: Normal color, Warm and dry, No rash - Extremities Extremities: No deformity, No edema - Neuro Neuro: Alert and oriented X 3, 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 ) Results - Vitals Vitals: Vital Signs - 24 hr 07/17/19 07/17/19 07/17/19 16:54 19:16 20:48 Temperature 37.1 C 36.1 C L 37.5 C Heart Rate 72 85 83 Respiratory 18 16 17 Rate Blood Pressure 114/96 H 101/77 130/92 H O2 Saturation 98 100 100 07/17/19 21:44 Temperature Heart Rate 72 Respiratory 17 Rate Blood Pressure 116/66 O2 Saturation 97 Oxygen O2 Source Room air - Labs Labs: Laboratory Tests 07/17/19 07/17/19 07/17/19 17:20 17:32 17:32 WBC 7.3 RBC 4.94 Hgb 14.5 Hct 42.9 MCV 86.8 MCH 29.4 MCHC 33.8 RDW 12.0 Plt Count 321 MPV 9.0 Neut # (Auto) 3.6 Lymph # (Auto) 2.1 [place] # (Auto) 0.5 Eos # (Auto) 0.9 H Baso # (Auto) 0.1 Absolute Nucleated RBC 0.00 Nucleated RBC % 0.0 Sodium 139 Potassium 4.1 Chloride 103 Carbon Dioxide 26 Anion Gap 10.0 BUN 10 Creatinine 0.8 Estimated GFR (MDRD) 83 L Glucose 92 Calcium 9.8 Total Bilirubin 0.4 AST 32 ALT 38 Alkaline Phosphatase 72 Total Protein 8.1 Albumin 4.4 Globulin 3.7 Albumin/Globulin Ratio 1.2 Lipase 31 Urine Color YELLOW Urine Clarity CLEAR Urine pH 8.5 H Ur Specific [place] 1.010 Urine Protein NEGATIVE Urine Glucose (UA) NEGATIVE Urine Ketones 15 H Urine Occult Blood NEGATIVE Urine Nitrite NEGATIVE Urine Bilirubin NEGATIVE Urine Urobilinogen 0.2 (NORMAL) Ur Leukocyte Esterase SMALL H Urine RBC None Seen Urine WBC 0-3 Ur Squamous Epith Cells MANY Squamous H Urine Bacteria Few Ur Microscopic Review INDICATED Urine Culture Comments NOT INDICATED Urine HCG, Qual NEGATIVE Procedures - IVC sono (time) 2024 Bedside IVC sono: IVC measures (cm) (1.07), IVC collapsed c insp (cm) (complete), Dehydration (est 1-2 liter deficit) PD MEDICAL DECISION MAKING - ED course Complexity details: reviewed old records, reviewed results, re-evaluated patient, considered differential, d/w patient, d/w family ED course: 34-year-old female with a year long history of abdominal pain and arthralgias who may have some issue with Lyme disease comes to the emergency department today feeling ill and with some left flank pain. Urinalysis is essentially unremarkable. She is administered saline as she is found to be dehydrated on interrogation the inferior vena cava and she is administered Rocephin and dexamethasone. The patient prefers to go home and realizing she may not have an answer to her questions today. I was not able to convince myself that she had UTI. Departure - Departure Disposition: 01 Home, Self Care Clinical Impression: Dehydration Abdominal pain Qualifiers: Abdominal location: left upper quadrant Qualified Code(s): R10.12 - Left upper quadrant pain Condition: Stable Instructions: ED Abdominal Pain Unkn Cause, ED Dehydration Follow-Up: Bull Kumar DO [Primary Care Provider] - Discharge Date/Time: 07/17/19 22:37
[2019-07-17] MEDS ORDERED: KETOROLAC 30 MG/ML VIAL IVP STA (21:16)
[2019-07-17] MEDS ORDERED: ONDANSETRON 4 MG/2 ML VIAL IVP STA (21:16)
[2019-07-17 21:44] VITALS: BP 116/66
== END 2019-07-17 22:37 | disposition home or self-care (01) ==
LOC: ED 16:49
DX: E86.0 Dehydration (principal); R10.12 Left upper quadrant pain
CPT/HCPCS: 36415; 80053; 81001; 81003; 81025; 83690; 85025; 87086; 96365; 96375; 99284

== ENCOUNTER 2020-05-19 14:19 | Emergency (ER) | payer OTHER ==
[2020-05-19] MEDS ORDERED: ONDANSETRON 4 MG/2 ML VIAL IVP STA (14:48)
[2020-05-19] MEDS ORDERED: SODIUM CHLORIDE 0.9% 1,000 ML IV STA (14:48)
[2020-05-19] MEDS ORDERED: HYDROmorphone 1 MG/ML CARPUJECT IVP STA ×2 (14:48→16:10)
[2020-05-19 14:53] LABS: BASOPHILS % (AUTO) 0.5 %; EOSINOPHILS # (AUTO) 0.1 10^3/uL (0.0-0.7); EOSINOPHILS % (AUTO) 2.2 %; HGB - HEMOGLOBIN 14.6 g/dL (12.0-16.0); LYMPHOCYTES % (AUTO) 36.6 %; MEAN CORPUSCULAR HEMOGLOBIN 29.3 pg (27.0-31.0); MEAN CORPUSCULAR HGB CONC 33.6 g/dL (32.0-36.0); MEAN CORPUSCULAR VOLUME 87.1 fL (81.0-99.0); MEAN PLATELET VOLUME 8.8 fL (7.9-10.8); MONOCYTES # (AUTO) 0.4 10^3/uL (0.0-1.0); MONOCYTES % (AUTO) 7.9 %; NEUTROPHILS # (AUTO) 2.9 10^3/uL (1.5-6.6); NEUTROPHILS % (AUTO) 52.6 %; PLT - PLATELET COUNT 296 10^3/uL (130-450); RED BLOOD COUNT 4.98 10^6/uL (4.20-5.40); RED CELL DISTRIBUTION WIDTH 11.8 % (12.0-15.0); WHITE BLOOD COUNT 5.5 x10^3/uL (4.8-10.8)
[2020-05-19 14:56] LABS: BILIRUBIN,URINE NEGATIVE (NEGATIVE); GLUCOSE, URINE (UA) NEGATIVE (NEGATIVE); KETONES,URINE (UA) NEGATIVE (NEGATIVE); LEUKOCYTE ESTERASE, URINE NEGATIVE (NEGATIVE); NITRITE,URINE NEGATIVE (NEGATIVE); OCCULT BLOOD,URINE NEGATIVE (NEGATIVE); PROTEIN,URINE NEGATIVE (NEGATIVE); UROBILINOGEN,URINE 0.2 (NORMAL) E.U./dL (NORMAL)
--- NOTE | 2020-05-19 14:58 | ED Physician Documentation ---
History of Present Illness - Stated complaint Stated Complaint: BILAT ABD PX - Chief complaint Chief Complaint: Abd Pain - History obtained from History obtained from: Patient - History of Present Illness Timing: How many days ago (3) Pain level max: 10 Pain level now: 10 - Additonal information Additional information: 34-year-old female presents to the emergency department bilateral flank pain for the past 3 days. History of chronic UTIs. Took oxycodone today at home without relief of pain. Nothing makes it better or worse. Denies any urinary symptoms. No fever but has had nausea. No vomiting. No diarrhea. No possibility of . Review of Systems Ten Systems: 10 systems reviewed and negative Constitutional: denies: Fever, Chills Cardiac: denies: Chest pain / pressure Respiratory: denies: Cough GI: reports: Nausea. denies: Vomiting : denies: Dysuria, Frequency, Hesitancy, Now EGA Skin: denies: Rash Musculoskeletal: denies: Neck pain, Back pain Neurologic: denies: Headache PD PAST MEDICAL HISTORY - Past Medical History Cardiovascular: None Respiratory: None Psych: None Musculoskeletal: Fibromyalgia Other Past Medical History: Lyme disease - Past Surgical History Past Surgical History: Yes General: Cholecystectomy Ortho: Carpal Tunnel surgery - Present Medications Home Medications: Ambulatory Orders Medication Instructions Recorded Confirmed Trazodone HCl 150 12/23/17 Venlafaxine HCl [Effexor Xr] 225 12/23/17 Amitriptyline [Elavil] 25 mg PO HS #30 tablet 12/26/17 Naproxen 375 mg PO BID #20 tablet 12/26/17 Oxycodone HCl/Acetaminophen 1 each PO Q6H PRN #20 tablet 12/26/17 [Percocet 5-325 mg Tablet] Promethazine [Phenergan] 25 mg PO Q6H PRN #30 tab 12/26/17 dexAMETHasone [Decadron] 4 mg PO DAILY #5 tablet 12/26/17 HYDROcod/ACETAM 5/325 [[place] 5/325] 1 tab PO Q6H PRN #15 tablet 04/17/18 Naproxen 375 mg PO BID #20 tablet 04/17/18 Phenazopyridine [Pyridium] 200 mg PO TID PRN #30 tablet 04/17/18 metroNIDAZOLE [Flagyl] 500 mg PO BID #14 tablet 04/17/18 Sulfamethoxazole/Trimethoprim 1 each PO BID #10 tablet 04/18/18 [Sulfamethoxazole-Tmp Ds Tablet] Ketorolac [Toradol] 10 mg PO Q6H PRN #20 tablet 05/19/20 Ondansetron Odt [Zofran] 4 mg TL Q6H PRN #20 tablet 05/19/20 Sulfamethox/Trimeth 800/160 1 each PO BID #20 tablet 05/19/20 [Bactrim Ds 800/160] - Allergies Allergies/Adverse Reactions: Allergies Allergy/AdvReac Type Severity Reaction Status Date / Time bupropion [From Wellbutrin] Allergy Unknown Verified 05/19/20 15:00 hyoscyamine Allergy Unknown Verified 05/19/20 15:00 - Living Situation Living Situation: reports: With family Living Arrangement: reports: At home - Social History Does the pt smoke?: No Smoking Status: Never smoker Does the pt drink ETOH?: No Does the pt have substance abuse?: Yes - Immunizations Immunizations are current?: Yes - POLST Patient has POLST: No PD ED PE NORMAL - Vitals Vital signs reviewed: Yes - General General: Alert and oriented X 3, No acute distress, Well developed/nourished - HEENT HEENT: PERRL, Moist mucous membranes - Neck Neck: Supple, no meningeal sign - Cardiac Cardiac: RRR, Strong equal pulses - Respiratory Respiratory: No respiratory distress, Clear bilaterally - Abdomen Abdomen: Soft, Non tender, Non distended - Back Back: No CVA TTP, No spinal TTP - Derm Derm: Warm and dry - Extremities Extremities: No edema - Neuro Neuro: Alert and oriented X 3 - Psych Psych: Normal mood, Normal affect Results - Vitals Vitals: Vital Signs - 24 hr 05/19/20 05/19/20 05/19/20 14:22 15:55 17:00 Temperature 37.1 C 36.7 C Heart Rate 78 66 68 Respiratory 16 18 18 Rate Blood Pressure 123/94 H 124/88 H 113/87 H O2 Saturation 96 99 98 Oxygen O2 Source Room air - Labs Labs: Laboratory Tests 05/19/20 05/19/20 05/19/20 14:43 14:43 14:43 WBC 5.5 RBC 4.98 Hgb 14.6 Hct 43.4 MCV 87.1 MCH 29.3 MCHC 33.6 RDW 11.8 L Plt Count 296 MPV 8.8 Neut # (Auto) 2.9 Lymph # (Auto) 2.0 [place] # (Auto) 0.4 Eos # (Auto) 0.1 Baso # (Auto) 0.0 Absolute Nucleated RBC 0.00 Nucleated RBC % 0.0 Sodium 136 Potassium 3.9 Chloride 101 Carbon Dioxide 25 Anion Gap 10.0 BUN 11 Creatinine 0.8 Estimated GFR (MDRD) 83 L Glucose 83 Calcium 9.6 Total Bilirubin 0.5 AST 53 H ALT 70 H Alkaline Phosphatase 75 Total Protein 8.6 H Albumin 4.7 Globulin 3.9 Albumin/Globulin Ratio 1.2 Lipase 42 Urine Color YELLOW Urine Clarity CLEAR Urine pH 7.0 Ur Specific [place] <=1.005 Urine Protein NEGATIVE Urine Glucose (UA) NEGATIVE Urine Ketones NEGATIVE Urine Occult Blood NEGATIVE Urine Nitrite NEGATIVE Urine Bilirubin NEGATIVE Urine Urobilinogen 0.2 (NORMAL) Ur Leukocyte Esterase NEGATIVE Ur Microscopic Review NOT INDICATED Urine Culture Comments NOT INDICATED Urine HCG, Qual NEGATIVE - Rads (name of study) CT abdomen pelvis Radiology: Prelim report reviewed, EMP read contemporaneously, See rad report (No acute abnormality) PD MEDICAL DECISION MAKING - ED course Complexity details: reviewed results, re-evaluated patient, considered differential, d/w patient, d/w family ED course: 34-year-old female with back pain of unclear etiology. No acute findings on CT scan of the abdomen and pelvis. Pain well controlled here. She had a positive urinalysis at home, therefore we will place her on Bactrim. This apparently has been an ongoing issue for her. She has oxycodone for home. Will prescribe ketorolac and see if that helps her pain as well. No abscess, no ureteral stones. Patient counseled regarding signs and symptoms for which I believe and urgent re-evaluation would be necessary. Patient with good understanding of and agreement to plan and is comfortable going home at this time This document was made in part using voice recognition software. While efforts are made to proofread this document, sound alike and grammatical errors may occur. Departure - Departure Disposition: 01 Home, Self Care Clinical Impression: Back pain Qualifiers: Back pain location: back pain in unspecified location Chronicity: acute Back pain laterality: bilateral Qualified Code(s): M54.9 - Dorsalgia, unspecified Condition: Good Instructions: ED Neck Back Pain General Follow-Up: Bull Kumar DO [Primary Care Provider] - Prescriptions: Sulfamethox/Trimeth 800/160 [Bactrim Ds 800/160] 1 each PO BID #20 tablet Ketorolac [Toradol] 10 mg PO Q6H PRN #20 tablet PRN Reason: back pain Ondansetron Odt [Zofran] 4 mg TL Q6H PRN #20 tablet PRN Reason: Nausea / Vomiting Comments: Return if you worsen. Take all antibiotics until gone. Follow-up with your doctor for further care. Discharge Date/Time: 05/19/20 17:17
[2020-05-19 15:01] LABS: CLARITY,URINE CLEAR (CLEAR); HCG UR QUAL NEGATIVE
[2020-05-19 15:07] LABS: ALBUMIN 4.7 g/dL (3.2-5.5); ALBUMIN/GLOBULIN RATIO 1.2 (1.0-2.2); BILIRUBIN,TOTAL 0.5 mg/dL (0.2-1.0); CALCIUM 9.6 mg/dL (8.5-10.3); CREATININE 0.8 mg/dL (0.4-1.0); TOTAL PROTEIN 8.6 g/dL (6.7-8.2)
[2020-05-19] MEDS ORDERED: IOVERSOL 320 100 ML VIAL IVP ONE ×2 (15:07→15:45)
--- NOTE | 2020-05-19 15:59 | CT Report ---
PROCEDURE: Abdomen/Pelvis W INDICATIONS: B flank pain CONTRAST: IV CONTRAST: Optiray 320 ml: 100 PO CONTRAST: *NO PO CONTRAST TECHNIQUE: After the administration of oral and intravenous contrast, 5 mm thick sections acquired from the diap hragms to the symphysis. 5 mm thick coronal and sagittal reformats were acquired. For radiation dos e reduction, the following was used: automated exposure control, adjustment of mA and/or kV accordin g to patient size. COMPARISON: 04/18/2018 FINDINGS: Image quality: Excellent. ABDOMEN: Lung bases: Lung bases are clear. Heart size is normal. Solid organs: Liver and spleen are normal in size and enhancement. Gallbladder is surgically absent Biliary system is non dilated. Pancreas enhances normally. No adrenal nodules. Kidneys demonstra te normal size and enhancement, without hydronephrosis. Peritoneum and bowel: Bowel loops demonstrate normal wall thickness and caliber. No free fluid or a ir. The appendix is normal. Nodes and vessels: No retroperitoneal or mesenteric adenopathy by size criteria. Aorta and inferior vena cava are normal in size. Miscellaneous: No ventral hernias. PELVIS: Genitourinary: Bladder wall thickness is normal. Miscellaneous: No inguinal hernias or adenopathy. Bones: No suspicious bony lesions. No vertebral body compression fractures. IMPRESSION: 1. No acute disease process. 2. No renal stone or hydronephrosis. 3. Appendix is normal. 4. No free fluid or free air. 5. No dilated loops of bowel. Reviewed by: Sarah Martinez MD, PhD on 05/19/2020 3:58 PM PDT Approved by: Sarah Martinez MD, PhD on 05/19/2020 3:58 PM PDT Station ID: [id number]
[2020-05-19] MEDS ORDERED: KETOROLAC 30 MG/ML VIAL IVP STA (16:10)
[2020-05-19] MEDS ORDERED: SULFAMETH/TRIMETH DS 800/160 MG TABLET PO STA (16:59)
[2020-05-19 17:05] VITALS: BP 113/87
== END 2020-05-19 17:17 | disposition home or self-care (01) ==
LOC: ED 14:19
DX: M54.9 Dorsalgia, unspecified (principal)
CPT/HCPCS: 36415; 74177; 80053; 81003; 81025; 83690; 85025; 96361; 96374; 96375; 96376; 99284; A9270; J1170; Q9967; 81001; 87086

== ENCOUNTER 2020-10-29 09:31 | Outpatient (CLI) | payer OTHER ==
[2020-10-29 10:05] LABS: BASOPHILS % (AUTO) 0.3 %; EOSINOPHILS # (AUTO) 0.2 10^3/uL (0.0-0.7); EOSINOPHILS % (AUTO) 2.6 %; HGB - HEMOGLOBIN 13.4 g/dL (12.0-16.0); LYMPHOCYTES # (AUTO) 1.5 10^3/uL (1.5-3.5); LYMPHOCYTES % (AUTO) 25.3 %; MEAN CORPUSCULAR HEMOGLOBIN 29.1 pg (27.0-31.0); MEAN CORPUSCULAR HGB CONC 32.9 g/dL (32.0-36.0); MEAN CORPUSCULAR VOLUME 88.3 fL (81.0-99.0); MEAN PLATELET VOLUME 8.9 fL (7.9-10.8); MONOCYTES # (AUTO) 0.5 10^3/uL (0.0-1.0); MONOCYTES % (AUTO) 8.2 %; NEUTROPHILS # (AUTO) 3.9 10^3/uL (1.5-6.6); NEUTROPHILS % (AUTO) 63.4 %; PLT - PLATELET COUNT 298 10^3/uL (130-450); RED BLOOD COUNT 4.61 10^6/uL (4.20-5.40); RED CELL DISTRIBUTION WIDTH 11.9 % (12.0-15.0); WHITE BLOOD COUNT 6.1 x10^3/uL (4.8-10.8)
[2020-10-29 10:47] LABS: ALBUMIN 4.1 g/dL (3.2-5.5); ALBUMIN/GLOBULIN RATIO 1.2 (1.0-2.2); BILIRUBIN,TOTAL 0.4 mg/dL (0.2-1.0); CALCIUM 9.5 mg/dL (8.5-10.3); CREATININE 0.8 mg/dL (0.4-1.0); TOTAL PROTEIN 7.4 g/dL (6.7-8.2)
[2020-10-29 11:05] LABS: T4 (THYROXINE) 7.69 ug/dL (6.09-12.23)
[2020-10-29 11:08] LABS: FREE T3 3.54 pg/mL (2.5-3.9)
[2020-10-29 11:13] LABS: FERRITIN 59.5 ng/mL (11.0-306.8)
[2020-10-29 11:14] LABS: PROLACTIN 9.73 ng/mL
[2020-10-29 11:34] LABS: FOLLICLE STIMULATING HORMONE 8.55 mIU/mL
[2020-10-29 11:35] LABS: LUTEINIZING HORMONE 5.82 mIU/mL
== END 2020-10-29 09:32 | disposition home or self-care (01) ==
LOC: LAB 09:31
PROVIDERS: ATTEND Nurse Practitioner Family
DX: N92.6 Irregular menstruation, unspecified (principal); E78.5 Hyperlipidemia, unspecified
CPT/HCPCS: 36415; 80053; 80061; 81599; 82306; 82627; 82728; 83001; 83002; 84146; 84403; 84436; 84443; 84481; 85025

== ENCOUNTER 2020-12-21 08:00 | Outpatient (CLI) | payer OTHER | END 2020-12-21 23:59 | disposition home or self-care (01) | LOC: LAB 08:00 | PROVIDERS: ATTEND Nurse Practitioner Family | DX: N94.3 Premenstrual tension syndrome (principal); M79.10 Myalgia, unspecified site | CPT/HCPCS: 81599; 82672; 84144; 84270; 86664; 86665 ==

== ENCOUNTER 2021-06-17 15:48 | Outpatient (CLI) | payer OTHER | END 2021-06-17 15:49 | disposition home or self-care (01) | LOC: LAB 15:48 | PROVIDERS: ATTEND Family Medicine | DX: M79.7 Fibromyalgia (principal) | CPT/HCPCS: 36415; 85651; 86140 ==

== ENCOUNTER 2021-11-02 13:08 | Outpatient (CLI) | payer OTHER ==
[2021-11-02 13:48] LABS: BASOPHILS % (AUTO) 0.3 %; EOSINOPHILS # (AUTO) 0.1 10^3/uL (0.0-0.7); EOSINOPHILS % (AUTO) 1.1 %; HCT - HEMATOCRIT 39.9 % (37.0-47.0); HGB - HEMOGLOBIN 13.3 g/dL (12.0-16.0); LYMPHOCYTES # (AUTO) 1.6 10^3/uL (1.5-3.5); LYMPHOCYTES % (AUTO) 21.3 %; MEAN CORPUSCULAR HEMOGLOBIN 29.8 pg (27.0-31.0); MEAN CORPUSCULAR HGB CONC 33.3 g/dL (32.0-36.0); MEAN CORPUSCULAR VOLUME 89.5 fL (81.0-99.0); MEAN PLATELET VOLUME 8.8 fL (7.9-10.8); MONOCYTES # (AUTO) 0.6 10^3/uL (0.0-1.0); MONOCYTES % (AUTO) 7.6 %; NEUTROPHILS # (AUTO) 5.2 10^3/uL (1.5-6.6); NEUTROPHILS % (AUTO) 69.4 %; PLT - PLATELET COUNT 331 10^3/uL (130-450); RED BLOOD COUNT 4.46 10^6/uL (4.20-5.40); RED CELL DISTRIBUTION WIDTH 12.3 % (12.0-15.0); WHITE BLOOD COUNT 7.5 x10^3/uL (4.8-10.8)
[2021-11-02 14:02] LABS: ALBUMIN 4.5 g/dL (3.2-5.5); ALBUMIN/GLOBULIN RATIO 1.2 (1.0-2.2); BILIRUBIN,TOTAL 0.8 mg/dL (0.2-1.0); CALCIUM 9.4 mg/dL (8.5-10.3); CREATININE 0.9 mg/dL (0.4-1.0); POTASSIUM 4.6 mmol/L (3.5-5.0); TOTAL PROTEIN 8.4 g/dL (6.7-8.2)
[2021-11-02 14:20] LABS: PLATELET ESTIMATE, MANUAL NORMAL (130-450,000) (NORMAL); PLATELET MORPHOLOGY NORMAL APPEARANCE (NORMAL); RBC MORPHOLOGY (MULTIPLE) NORMAL APPEARANCE (NORMAL)
== END 2021-11-02 13:09 | disposition home or self-care (01) ==
LOC: LAB 13:08
PROVIDERS: ATTEND Family Medicine
DX: R00.0 Tachycardia, unspecified (principal); Z79.899 Other long term (current) drug therapy
CPT/HCPCS: 36415; 80053; 84443; 85025

== ENCOUNTER 2022-12-22 15:08 | Outpatient (CLI) | payer BC ==
[2022-12-22 16:01] LABS: THYROID STIMULATING HORMONE 1.59 uIU/mL (0.34-5.60)
[2022-12-22 16:06] LABS: PROLACTIN 14.72 ng/mL
[2022-12-23 07:10] LABS: PROGESTERONE 0.1 ng/mL (.)
== END 2022-12-22 15:09 | disposition home or self-care (01) ==
LOC: LAB 15:08
PROVIDERS: ATTEND Obstetrics & Gynecology
DX: N93.8 Other specified abnormal uterine and vaginal bleeding (principal); O92.6 Galactorrhea
CPT/HCPCS: 36415; 82670; 84144; 84146; 84443

== ENCOUNTER 2023-01-10 13:15 | Outpatient (CLI) | payer BC ==
--- NOTE | 2023-01-11 12:53 | Mammography Report ---
BILATERAL DIGITAL DIAGNOSTIC MAMMOGRAM 3D/2D WITH EXAGGERATED CC: 01/10/2023 CLINICAL: Baseline exam. Occasional right breast pain. No prior exams were available for comparison. Both breasts are extremely dense, which lowers the sensitivity of mammography (category d />75% gland ular tissue). No significant masses, calcifications, or other findings are seen in either breast. IMPRESSION: NEGATIVE There is no mammographic evidence of malignancy. A 5 year screening mammogram is recommended. Based on the Tyrer Cuzick model (a risk assessment model) the patients lifetime risk is 11.3% and he r 10 year risk is 0.9%. According to the ACR, ACS, and NCCN guidelines, an annual breast MRI exam sakina ng with mammogram is recommended if the patients lifetime risk is 20% or greater. This exam was interpreted at Station ID: [id number]. NOTE: For mammograms, a report in lay terms will be sent to the patient. Approximately 15% of breast malignancies will not be visualized mammographically. In the management of a palpable breast mass, a negative mammogram must not discourage biopsy of a clinically suspicious lesion. Electronically Signed By: Meño Azar M.D., jr/lizzy:01/10/2023 13:59:16 letter sent: No_Letter ACR BI-RADS Category 1: Negative 3341F PARENCHYMAL PATTERN: (VD) - The breast(s) demonstrate(s) extremely dense parenchyma, limiting the sen sitivity of mammography. BI-RADS CATEGORY: (1) - 1 Mammogram [id number] 5 year screening LATERALITY: (B)
== END 2023-01-10 13:16 | disposition home or self-care (01) ==
LOC: DI 13:15
PROVIDERS: ATTEND Obstetrics & Gynecology
DX: N64.4 Mastodynia (principal); N64.3 Galactorrhea not associated with childbirth

== ENCOUNTER 2023-06-18 12:49 | Emergency (ER) | payer BC ==
[2023-06-18 12:58] VITALS: BP 107/86
[2023-06-18] MEDS ORDERED: lidocaine 1% 20 ML MDV SUBQ ONE (13:13)
[2023-06-18] MEDS ORDERED: TETANUS/DIPHTHERIA/PERTUSSIS 0.5 ML SYRINGE IM ONE (13:20)
[2023-06-18] MEDS ORDERED: BACITRACIN ZINC OINT 1 PACKET TOP STA (14:28)
--- NOTE | 2023-06-18 14:31 | ED Physician Documentation ---
PD HPI UPPER EXT INJURY - Stated complaint Stated Complaint: FINGER LAC- RT HAND - Chief complaint Chief Complaint: Laceration - History obtained from History obtained from: Patient - Additonal information Additional information: The patient comes to the emergency department chief complaint of laceration of right index finger with a new, sharp knife. She states she was taking out of the packaging when it slipped and cut her finger. The patient denies any other injuries. She is not sure when her last tetanus shot was but thinks it may have been more than 10 years. No compromise of range of motion of her finger. No other complaints at this time. PD PAST MEDICAL HISTORY - Past Medical History Cardiovascular: None Respiratory: None Psych: None Musculoskeletal: Fibromyalgia - Past Surgical History Past Surgical History: Yes General: Cholecystectomy Ortho: Carpal Tunnel surgery - Present Medications Home Medications: Ambulatory Orders Medication Instructions Recorded Confirmed Trazodone HCl 150 12/23/17 Venlafaxine HCl [Effexor Xr] 225 12/23/17 Amitriptyline [Elavil] 25 mg PO HS #30 tablet 12/26/17 Naproxen 375 mg PO BID #20 tablet 12/26/17 Oxycodone HCl/Acetaminophen 1 each PO Q6H PRN #20 tablet 12/26/17 [Percocet 5-325 mg Tablet] Promethazine [Phenergan] 25 mg PO Q6H PRN #30 tab 12/26/17 dexAMETHasone [Decadron] 4 mg PO DAILY #5 tablet 12/26/17 HYDROcod/ACETAM 5/325 [[place] 5/325] 1 tab PO Q6H PRN #15 tablet 04/17/18 Naproxen 375 mg PO BID #20 tablet 04/17/18 Phenazopyridine [Pyridium] 200 mg PO TID PRN #30 tablet 04/17/18 metroNIDAZOLE [Flagyl] 500 mg PO BID #14 tablet 04/17/18 Sulfamethoxazole/Trimethoprim 1 each PO BID #10 tablet 04/18/18 [Sulfamethoxazole-Tmp Ds Tablet] Ketorolac [Toradol] 10 mg PO Q6H PRN #20 tablet 05/19/20 Ondansetron Odt [Zofran] 4 mg TL Q6H PRN #20 tablet 05/19/20 Sulfamethox/Trimeth 800/160 1 each PO BID #20 tablet 05/19/20 [Bactrim Ds 800/160] - Allergies Allergies/Adverse Reactions: Allergies Allergy/AdvReac Type Severity Reaction Status Date / Time bupropion [From Wellbutrin] Allergy Unknown Verified 05/19/20 15:00 hyoscyamine Allergy Unknown Verified 05/19/20 15:00 - Social History Does the pt smoke?: No Smoking Status: Never smoker Does the pt drink ETOH?: No Does the pt have substance abuse?: Yes - Immunizations Immunizations are current?: Yes - POLST Patient has POLST: No PD ED PE NORMAL - Vitals Vital signs reviewed: Yes - General General: Alert and oriented X 3, No acute distress, Well developed/nourished - HEENT HEENT: Atraumatic, PERRL, EOMI, Moist mucous membranes - Neck Neck: Supple, no meningeal sign - Cardiac Cardiac: Strong equal pulses - Respiratory Respiratory: No respiratory distress - Derm Derm: Normal color, Warm and dry, No rash, Other (2.5 cm laceration over the dorsum of the right index finger over the middle phalanx. Laceration does not overlie the joint. Laceration curves around the radial aspect of finger and do es not involve the area over the flexor tendon tract.) - Extremities Extremities: No deformity, Other (Full range of motion right index finger with full strength of extension against resistance at the DIP joint.) - Neuro Neuro: Alert and oriented X 3 - Psych Psych: Normal mood, Normal affect Results - Vitals Vitals: Vital Signs - 24 hr 06/18/23 12:52 Temperature 36.7 C Heart Rate 95 Respiratory 18 Rate Blood Pressure 107/86 H O2 Saturation 97 Oxygen O2 Source Room air Procedures - Laceration (location) R index finger Length in cm: 2.5 Wound type: Linear, Into subcut fat, Clean Neurovascular status: Sensory intact, Motor intact, Vascular intact Tendon involvement: Tendon intact Anesthesia: Lidocaine 1% Wound preparation: Hibiclens, Irrigated copiously NS, Wound explored, To the base Skin layer closure: Nylon, Interrupted, Size #-0 - enter number (5.0), Sutures - enter # (6) Other: Patient tolerated well, No complications, Neurovascular intact, Dressing applied, Tetanus booster given PD Medical Decision Making - ED course Complexity details: considered differential, d/w patient, d/w family ED course: Patient's laceration was repaired as above. Her tetanus was updated as the last tetanus booster in our system was in 2011. We discussed wound care, timeline for suture removal, and the usual indications for return. Departure - Departure Disposition: 01 Home, Self Care Clinical Impression: Laceration Condition: Stable Instructions: ED Laceration Hand Comments: Your tetanus has been updated today. Your next one will be due in approximately 10 years. Your right index finger laceration was repaired with 6 synthetic sutures. They should be left in place for a minimum of 5 days but preferably, 7 days. You may allow water and soap to run over the wound but please do not rub, scrub, or immerse the wound. This is to prevent infection from developing. In general, infection is unlikely, but if you begin to notice redness and swelling spreading progressively away from the wound, or if the wound splits apart and becomes "mushy", please have the wound rechecked. You should have the wound evaluated and sutures removed by medical professional in about 7 days, otherwise. Forms: PCP List Discharge Date/Time: 06/18/23 14:37
== END 2023-06-18 14:37 | disposition home or self-care (01) ==
LOC: ED 12:49
DX: S61.210A Laceration without foreign body of right index finger without damage to nail, initial encounter (principal); W26.0XXA Contact with knife, initial encounter; Z23 Encounter for immunization; Z71.85 Encounter for immunization safety counseling
CPT/HCPCS: 12001; 90471; 99283

== ENCOUNTER 2023-09-13 09:30 | Outpatient (CLI) | payer BC ==
[2023-09-13 09:47] LABS: BASOPHILS % (AUTO) 0.5 %; EOSINOPHILS # (AUTO) 0.1 10^3/uL (0.0-0.7); EOSINOPHILS % (AUTO) 2.4 %; HCT - HEMATOCRIT 41.9 % (37.0-47.0); HGB - HEMOGLOBIN 13.9 g/dL (12.0-16.0); LYMPHOCYTES # (AUTO) 2.1 10^3/uL (1.5-3.5); LYMPHOCYTES % (AUTO) 36.7 %; MEAN CORPUSCULAR HEMOGLOBIN 28.5 pg (27.0-31.0); MEAN CORPUSCULAR HGB CONC 33.2 g/dL (32.0-36.0); MEAN CORPUSCULAR VOLUME 85.9 fL (81.0-99.0); MEAN PLATELET VOLUME 8.7 fL (7.9-10.8); MONOCYTES # (AUTO) 0.5 10^3/uL (0.0-1.0); MONOCYTES % (AUTO) 8.9 %; NEUTROPHILS % (AUTO) 51.3 %; PLT - PLATELET COUNT 340 10^3/uL (130-450); RED BLOOD COUNT 4.88 10^6/uL (4.20-5.40); RED CELL DISTRIBUTION WIDTH 11.9 % (12.0-15.0); WHITE BLOOD COUNT 5.8 x10^3/uL (4.8-10.8)
[2023-09-13 10:07] LABS: ALBUMIN 4.6 g/dL (3.2-5.5); ALBUMIN/GLOBULIN RATIO 1.5 (1.0-2.2); ALKALINE PHOSPHATASE 81 IU/L (42-121); ALT ALANINE AMINOTRANSFERASE 64 IU/L (10-60); AST ASPARTATE AMINOTRANSFERASE 45 IU/L (10-42); BILIRUBIN,TOTAL 0.3 mg/dL (0.2-1.0); BUN - BLOOD UREA NITROGEN 11 mg/dL (6-20); CALCIUM 9.8 mg/dL (8.5-10.3); CARBON DIOXIDE - CO2 28 mmol/L (21-32); CHLORIDE 103 mmol/L (101-111); CHOLESTEROL 211 mg/dL; CREATININE 0.7 mg/dL (0.6-1.3); GFR - MDRD 95 (>89); GLUCOSE 96 mg/dL (74-104); HDL CHOLESTEROL 71 mg/dL; LDL CHOLESTEROL,CALCULATED 114 mg/dL; LDL/HDL RATIO 1.6 (<4.4); SODIUM 138 mmol/L (135-145); TOTAL PROTEIN 7.7 g/dL (6.4-8.9); TRIGLYCERIDES 132 mg/dL (48-352); VLDL CHOLESTEROL 26 mg/dL
[2023-09-13 10:19] LABS: THYROID STIMULATING HORMONE 10.48 uIU/mL (0.34-5.60)
--- NOTE | 2023-09-13 10:30 | XRAY Report ---
PROCEDURE: Finger(s) RT INDICATIONS: PAIN IN RIGHT THUMB TECHNIQUE: AP hand, 2 views of the right thumb) acquired. COMPARISON: None. FINDINGS: Bones: No fractures or dislocations. No suspicious bony lesions. Soft tissues: No suspicious soft tissue calcifications or masses. IMPRESSION: No acute bony abnormality. Reviewed by: Shun Davis MD on 09/13/2023 10:29 AM PDT Approved by: Shun Davis MD on 09/13/2023 10:29 AM PDT Station ID: [id number]
== END 2023-09-13 09:31 | disposition home or self-care (01) ==
LOC: DI 09:30
PROVIDERS: ATTEND Family Medicine
DX: M79.644 Pain in right finger(s) (principal); Z79.899 Other long term (current) drug therapy; R61 Generalized hyperhidrosis; R45.0 Nervousness
CPT/HCPCS: 36415; 80053; 80061; 83721; 84443; 85025

== ENCOUNTER 2023-10-07 13:13 | Outpatient (CLI) | payer BC | END 2023-10-07 13:14 | disposition home or self-care (01) | LOC: LAB 13:13 | PROVIDERS: ATTEND Family Medicine | DX: Z79.899 Other long term (current) drug therapy (principal); R61 Generalized hyperhidrosis; R45.0 Nervousness | CPT/HCPCS: 36415; 82670; 83001; 83002 ==

== ENCOUNTER 2023-12-05 19:12 | Outpatient (CLI) | payer BC ==
--- NOTE | 2023-12-06 14:13 | Ultrasound Report ---
PROCEDURE: Pelvic w/Transvaginal INDICATIONS: PELVIC PAIN TECHNIQUE: Real-time scanning was performed of the pelvic organs, with image documentation. Additional endovagi nal scanning was necessary due to incomplete visualization of the adnexal and endometrial structures by transabdominal scanning. COMPARISON: None. FINDINGS: Uterus: Uterus is anteverted and normal in size at 8.9 x 4.6 x 6.1 cm. The myometrium is heterogene ous. The endometrium measures 21 mm in combined thickness. Ovaries: The right ovary measures 2.1 x 2.4 x 3.7 cm, with a calculated ovarian volume of 10 cc. Th e left ovary measures 2.9 x 1.6 x 2 cm, with a calculated ovarian volume of 5 cc. The ovaries have a normal sonographic appearance. Less than 12 follicles can be seen in each ovary. No adnexal masses are seen. No cystic lesions measuring greater than 3 cm. Other: No pathologic free abdominal or pelvic fluid. IMPRESSION: Unremarkable pelvic ultrasound. Reviewed by: Juan Dickinson MD on 12/06/2023 2:12 PM PST Approved by: Juan Dickinson MD on 12/06/2023 2:12 PM PST Station ID: [id number]
== END 2023-12-05 19:13 | disposition home or self-care (01) ==
LOC: DI 19:12
PROVIDERS: ATTEND Obstetrics & Gynecology
DX: R10.2 Pelvic and perineal pain (principal)

== ENCOUNTER 2024-07-18 07:43 | Outpatient (CLI) | payer BC ==
[2024-07-18 09:50] LABS: BASOPHILS % (AUTO) 0.5 %; EOSINOPHILS # (AUTO) 0.1 10^3/uL (0.0-0.7); EOSINOPHILS % (AUTO) 1.7 %; HCT - HEMATOCRIT 40.3 % (37.0-47.0); LYMPHOCYTES # (AUTO) 1.8 10^3/uL (1.5-3.5); LYMPHOCYTES % (AUTO) 30.3 %; MEAN CORPUSCULAR HEMOGLOBIN 28.8 pg (27.0-31.0); MEAN CORPUSCULAR HGB CONC 32.3 g/dL (32.0-36.0); MEAN CORPUSCULAR VOLUME 89.4 fL (81.0-99.0); MEAN PLATELET VOLUME 9.4 fL (7.9-10.8); MONOCYTES # (AUTO) 0.5 10^3/uL (0.0-1.0); MONOCYTES % (AUTO) 8.1 %; NEUTROPHILS # (AUTO) 3.6 10^3/uL (1.5-6.6); NEUTROPHILS % (AUTO) 59.2 %; PLT - PLATELET COUNT 347 10^3/uL (130-450); RED BLOOD COUNT 4.51 10^6/uL (4.20-5.40); RED CELL DISTRIBUTION WIDTH 12.2 % (12.0-15.0)
[2024-07-18 10:08] LABS: CHOL/HDL RATIO 2.5 (<4.4); CHOLESTEROL 200 mg/dL; GAMMA GLUTAMYL TRANSPEPTIDASE 156 IU/L (9-64); HDL CHOLESTEROL 80 mg/dL; LDL CHOLESTEROL,CALCULATED 105 mg/dL; LDL/HDL RATIO 1.3 (<4.4); TRIGLYCERIDES 76 mg/dL; VLDL CHOLESTEROL 15 mg/dL
[2024-07-18 10:09] LABS: ALBUMIN 4.3 g/dL (3.2-5.5); ALBUMIN/GLOBULIN RATIO 1.3 (1.0-2.2); BILIRUBIN,TOTAL 0.3 mg/dL (0.2-1.0); CALCIUM 9.4 mg/dL (8.5-10.3); CREATININE 0.8 mg/dL (0.6-1.3); TOTAL PROTEIN 7.7 g/dL (6.4-8.9)
[2024-07-18 10:26] LABS: THYROID STIMULATING HORMONE 2.34 uIU/mL (0.34-5.60)
[2024-07-18 10:35] LABS: FERRITIN 52.6 ng/mL (11.0-306.8)
[2024-07-18 10:59] LABS: ESTIMATED AVERAGE GLUCOSE 100 mg/dL (70-100); HEMOGLOBIN A1c% 5.1 % (4.27-6.07)
[2024-07-19 02:09] LABS: HSV 1 IGG TYPE SPEC <0.91 index (0.00-0.90); HSV 2 IGG TYPE SPEC <0.91 index (0.00-0.90)
[2024-07-19 03:11] LABS: CYTOMEGALOVIRUS (CMV) AB IGG <0.60 U/mL (0.00-0.59); CYTOMEGALOVIRUS (CMV) AB IGM <30.0 AU/mL (0.0-29.9); VITAMIN D 25-HYDROXY 95.1 ng/mL (30.0-100.0)
[2024-07-19 04:10] LABS: COMPLEMENT C3 160 mg/dL (82-167); COMPLEMENT C4 26 mg/dL (12-38)
[2024-07-19 08:10] LABS: PROGESTERONE 11.5 ng/mL (.)
[2024-07-19 09:10] LABS: EBV AB VCA IGM <36.0 U/mL (0.0-35.9); EBV EARLY ANTIGEN AB IGG <9.0 U/mL (0.0-8.9)
[2024-07-19 20:09] LABS: THYROID PEROXIDASE (TPO) AB 57 IU/mL (0-34)
[2024-07-19 22:08] LABS: ANTINUCLEAR ANTIBODIES IFA Negative (.); FOLATE HEMOLYSATE >620.0 ng/mL (Not Estab.); FOLATE RBC >1538 ng/mL (>498); HEMATOCRIT 40.3 % (34.0-46.6)
== END 2024-07-18 07:44 | disposition home or self-care (01) ==
LOC: LAB 07:43
PROVIDERS: ATTEND Naturopath
DX: M54.2 Cervicalgia (principal); A69.20 Lyme disease, unspecified; M54.59 Other low back pain; N94.6 Dysmenorrhea, unspecified; R53.82 Chronic fatigue, unspecified; K59.00 Constipation, unspecified; Z11.3 Encounter for screening for infections with a predominantly sexual mode of transmission; R20.2 Paresthesia of skin; F20.2 Catatonic schizophrenia; E28.2 Polycystic ovarian syndrome
CPT/HCPCS: 36415; 80053; 80061; 81599; 82306; 82525; 82533; 82607; 82626; 82627; 82728; 82747; 82784; 82977; 83001; 83036; 83615; 83721; 83735; 83921; 84144; 84146; 84270; 84402; 84403; 84436; 84439; 84443; 84480; 84481; 84482; 84630; 85014; 85025; 86038; 86160; 86231; 86364; 86376; 86644; 86645; 86663; 86664; 86665; 86695; 86696; 86738; 86800

== ENCOUNTER 2024-07-22 11:38 | Outpatient (CLI) | payer BC | END 2024-07-22 11:39 | disposition home or self-care (01) | LOC: LAB 11:38 | PROVIDERS: ATTEND Naturopath | DX: A69.20 Lyme disease, unspecified (principal); E28.2 Polycystic ovarian syndrome; M54.2 Cervicalgia; M54.59 Other low back pain; N94.6 Dysmenorrhea, unspecified; R53.82 Chronic fatigue, unspecified; K59.00 Constipation, unspecified; Z11.3 Encounter for screening for infections with a predominantly sexual mode of transmission; R20.2 Paresthesia of skin | CPT/HCPCS: 81599 ==